=== PATIENT | female | born 1980 | race Caucasian/White ===

== ENCOUNTER → 2024-11-29 | Outpatient (CLI) | payer MEDICAID, SELFPAY | END | disposition home or self-care (01) | LOC: SWHD 09:05 | PROVIDERS: Visit Provider Student in an Organized Health Care Education/Training Program | DX: L98.499 Non-pressure chronic ulcer of skin of other sites with unspecified severity (principal); T81.89XA Other complications of procedures, not elsewhere classified, initial encounter; E27.1 Primary adrenocortical insufficiency; E27.2 Addisonian crisis; E03.9 Hypothyroidism, unspecified; J45.909 Unspecified asthma, uncomplicated; E10.40 Type 1 diabetes mellitus with diabetic neuropathy, unspecified; E10.10 Type 1 diabetes mellitus with ketoacidosis without coma; Z87.891 Personal history of nicotine dependence; D69.6 Thrombocytopenia, unspecified; F41.9 Anxiety disorder, unspecified | CPT/HCPCS: 99213; A9270; G0463 ==

== ENCOUNTER → 2024-12-06 | Outpatient (CLI) | payer MEDICAID, SELFPAY | END | disposition home or self-care (01) | LOC: SWHD 13:40 | PROVIDERS: Visit Provider Surgery | DX: L98.499 Non-pressure chronic ulcer of skin of other sites with unspecified severity (principal); T81.89XA Other complications of procedures, not elsewhere classified, initial encounter; E27.1 Primary adrenocortical insufficiency; E27.2 Addisonian crisis; E03.9 Hypothyroidism, unspecified; J45.909 Unspecified asthma, uncomplicated; E10.40 Type 1 diabetes mellitus with diabetic neuropathy, unspecified; E10.10 Type 1 diabetes mellitus with ketoacidosis without coma; Z87.891 Personal history of nicotine dependence; D69.6 Thrombocytopenia, unspecified; F41.9 Anxiety disorder, unspecified | CPT/HCPCS: 97597; A9270 ==

== ENCOUNTER → 2024-12-13 | Outpatient (CLI) | payer MEDICAID, SELFPAY | END | disposition home or self-care (01) | LOC: SWHD 13:27 | PROVIDERS: Visit Provider Student in an Organized Health Care Education/Training Program | DX: T81.89XA Other complications of procedures, not elsewhere classified, initial encounter (principal); E27.1 Primary adrenocortical insufficiency; E03.9 Hypothyroidism, unspecified; J45.909 Unspecified asthma, uncomplicated; E10.40 Type 1 diabetes mellitus with diabetic neuropathy, unspecified; E10.10 Type 1 diabetes mellitus with ketoacidosis without coma; Z87.891 Personal history of nicotine dependence; D69.6 Thrombocytopenia, unspecified; F41.9 Anxiety disorder, unspecified | CPT/HCPCS: 99213; A9270; G0463 ==

== ENCOUNTER → 2024-12-20 | Outpatient (CLI) | payer MEDICAID, SELFPAY | END | disposition home or self-care (01) | LOC: SWHD 14:17 | PROVIDERS: PCP Family Medicine; Referring Provider Family Medicine; Visit Provider Student in an Organized Health Care Education/Training Program | DX: T81.89XA Other complications of procedures, not elsewhere classified, initial encounter (principal); J45.909 Unspecified asthma, uncomplicated; E03.9 Hypothyroidism, unspecified; E27.1 Primary adrenocortical insufficiency; E10.40 Type 1 diabetes mellitus with diabetic neuropathy, unspecified; E10.10 Type 1 diabetes mellitus with ketoacidosis without coma; Z87.891 Personal history of nicotine dependence; D69.6 Thrombocytopenia, unspecified; F41.9 Anxiety disorder, unspecified | CPT/HCPCS: 17250; A9270 ==

== ENCOUNTER → 2024-12-27 | Outpatient (CLI) | payer MEDICAID, SELFPAY | END | disposition home or self-care (01) | LOC: SWHD 13:17 | PROVIDERS: PCP Family Medicine; Referring Provider Family Medicine; Visit Provider Student in an Organized Health Care Education/Training Program | DX: T81.89XA Other complications of procedures, not elsewhere classified, initial encounter (principal); J45.909 Unspecified asthma, uncomplicated; E03.9 Hypothyroidism, unspecified; E27.1 Primary adrenocortical insufficiency; E10.40 Type 1 diabetes mellitus with diabetic neuropathy, unspecified; E10.10 Type 1 diabetes mellitus with ketoacidosis without coma; Z87.891 Personal history of nicotine dependence; D69.6 Thrombocytopenia, unspecified; F41.9 Anxiety disorder, unspecified | CPT/HCPCS: 99213; A9270; G0463 ==

== ENCOUNTER → 2025-01-03 | Outpatient (CLI) | payer MEDICAID, SELFPAY | END | disposition home or self-care (01) | LOC: SWHD 13:35 | PROVIDERS: PCP Family Medicine; Referring Provider Family Medicine; Visit Provider Surgery | DX: T81.89XA Other complications of procedures, not elsewhere classified, initial encounter (principal); S21.101A Unspecified open wound of right front wall of thorax without penetration into thoracic cavity, initial encounter; X58.XXXA Exposure to other specified factors, initial encounter; J45.909 Unspecified asthma, uncomplicated; E03.9 Hypothyroidism, unspecified; E27.1 Primary adrenocortical insufficiency; E10.40 Type 1 diabetes mellitus with diabetic neuropathy, unspecified; E10.10 Type 1 diabetes mellitus with ketoacidosis without coma; Z87.891 Personal history of nicotine dependence; D69.6 Thrombocytopenia, unspecified; F41.9 Anxiety disorder, unspecified | CPT/HCPCS: 99213; A9270; G0463 ==

== ENCOUNTER → 2025-01-10 | Outpatient (CLI) | payer MEDICAID, SELFPAY | END | disposition home or self-care (01) | LOC: SWHD 10:01 | PROVIDERS: PCP Family Medicine; Referring Provider Family Medicine; Visit Provider Surgery | DX: T81.89XA Other complications of procedures, not elsewhere classified, initial encounter (principal); S21.101A Unspecified open wound of right front wall of thorax without penetration into thoracic cavity, initial encounter; X58.XXXA Exposure to other specified factors, initial encounter; J45.909 Unspecified asthma, uncomplicated; E03.9 Hypothyroidism, unspecified; E27.1 Primary adrenocortical insufficiency; E10.40 Type 1 diabetes mellitus with diabetic neuropathy, unspecified; E10.10 Type 1 diabetes mellitus with ketoacidosis without coma; Z87.891 Personal history of nicotine dependence; D69.6 Thrombocytopenia, unspecified; F41.9 Anxiety disorder, unspecified | CPT/HCPCS: 99213; A9270; G0463 ==

== ENCOUNTER → 2025-01-17 | Outpatient (CLI) | payer MEDICAID, SELFPAY | END | disposition home or self-care (01) | LOC: SWHD 14:32 | PROVIDERS: PCP Family Medicine; Referring Provider Family Medicine; Visit Provider Student in an Organized Health Care Education/Training Program | DX: T81.89XA Other complications of procedures, not elsewhere classified, initial encounter (principal); S21.101A Unspecified open wound of right front wall of thorax without penetration into thoracic cavity, initial encounter; X58.XXXA Exposure to other specified factors, initial encounter; J45.909 Unspecified asthma, uncomplicated; E03.9 Hypothyroidism, unspecified; E27.1 Primary adrenocortical insufficiency; E10.40 Type 1 diabetes mellitus with diabetic neuropathy, unspecified; E10.10 Type 1 diabetes mellitus with ketoacidosis without coma; Z87.891 Personal history of nicotine dependence; D69.6 Thrombocytopenia, unspecified; F41.9 Anxiety disorder, unspecified | CPT/HCPCS: 97597; A9270 ==

== ENCOUNTER → 2025-01-24 | Outpatient (CLI) | payer MEDICAID, SELFPAY | END | disposition home or self-care (01) | LOC: SWHD 14:01 | PROVIDERS: PCP Family Medicine; Referring Provider Family Medicine; Visit Provider Student in an Organized Health Care Education/Training Program | DX: T81.89XA Other complications of procedures, not elsewhere classified, initial encounter (principal); S21.101A Unspecified open wound of right front wall of thorax without penetration into thoracic cavity, initial encounter; X58.XXXA Exposure to other specified factors, initial encounter; J45.909 Unspecified asthma, uncomplicated; E03.9 Hypothyroidism, unspecified; E27.1 Primary adrenocortical insufficiency; E10.40 Type 1 diabetes mellitus with diabetic neuropathy, unspecified; E10.10 Type 1 diabetes mellitus with ketoacidosis without coma; Z87.891 Personal history of nicotine dependence; D69.6 Thrombocytopenia, unspecified; F41.9 Anxiety disorder, unspecified | CPT/HCPCS: 99213; A9270; G0463 ==

== ENCOUNTER → 2025-01-31 | Outpatient (CLI) | payer MEDICAID, SELFPAY | END | disposition home or self-care (01) | LOC: SWHD 13:50 | PROVIDERS: PCP Family Medicine; Referring Provider Family Medicine; Visit Provider Student in an Organized Health Care Education/Training Program | DX: T81.89XA Other complications of procedures, not elsewhere classified, initial encounter (principal); S21.101A Unspecified open wound of right front wall of thorax without penetration into thoracic cavity, initial encounter; X58.XXXA Exposure to other specified factors, initial encounter; J45.909 Unspecified asthma, uncomplicated; E03.9 Hypothyroidism, unspecified; E27.1 Primary adrenocortical insufficiency; E10.40 Type 1 diabetes mellitus with diabetic neuropathy, unspecified; E10.10 Type 1 diabetes mellitus with ketoacidosis without coma; Z87.891 Personal history of nicotine dependence; F41.9 Anxiety disorder, unspecified | CPT/HCPCS: 99213; A9270; G0463 ==

== ENCOUNTER → 2025-02-07 | Outpatient (CLI) | payer MEDICAID, SELFPAY | END | disposition home or self-care (01) | LOC: SWHD 12:55 | PROVIDERS: PCP Family Medicine; Referring Provider Family Medicine; Visit Provider Student in an Organized Health Care Education/Training Program | DX: T81.89XA Other complications of procedures, not elsewhere classified, initial encounter (principal); S21.101A Unspecified open wound of right front wall of thorax without penetration into thoracic cavity, initial encounter; X58.XXXA Exposure to other specified factors, initial encounter; J45.909 Unspecified asthma, uncomplicated; E03.9 Hypothyroidism, unspecified; E27.1 Primary adrenocortical insufficiency; E10.40 Type 1 diabetes mellitus with diabetic neuropathy, unspecified; E10.10 Type 1 diabetes mellitus with ketoacidosis without coma; Z87.891 Personal history of nicotine dependence; F41.9 Anxiety disorder, unspecified | CPT/HCPCS: 99213; A9270; G0463 ==

== ENCOUNTER → 2025-02-08 | Outpatient (CLI) | payer MEDICAID, SELFPAY | END | disposition home or self-care (01) | LOC: SLDO 14:22 | PROVIDERS: Referring Provider Student in an Organized Health Care Education/Training Program; Visit Provider Student in an Organized Health Care Education/Training Program | DX: E10.622 Type 1 diabetes mellitus with other skin ulcer (principal) | CPT/HCPCS: 87070; 87075; 87077; 87186; 87205 ==

== ENCOUNTER → 2025-02-09 | Outpatient (CLI) | payer MEDICAID, SELFPAY ==
[2025-02-09 14:26] LABS: Basophils # (Auto) 0.1 Thou/mm3 (0.0-0.2); Basophils % (Auto) 1 % (0-2.5); Eosinophils # (Auto) 0.2 Thou/mm3 (0.0-0.5); Eosinophils % (Auto) 1 % (0-10); Hematocrit 37.5 % (36.0-46.0); Hemoglobin 12.7 g/dL (12.0-16.0); Immature Granulocytes Auto 0.20 Thou/mm3 (0.00-0.00); Lymphocytes # (Auto) 2.5 Thou/mm3 (1.0-4.8); Lymphocytes % (Auto) 18 % (10-50); Mean Corpuscular HGB Conc 33.9 g/dl (31.0-37.0); Mean Corpuscular Hemoglobin 30.1 pg (25.0-35.0); Mean Corpuscular Volume 89 fL (80-100); Monocytes # (Auto) 1.0 Thou/mm3 (0.0-0.8); Monocytes % (Auto) 7 % (0-12); Neutrophils # (Auto) 9.8 Thou/mm3 (1.8-7.7); Neutrophils % (Auto) 71 % (37-80); Nucleated Red Blood Cell # 0.00 Thou/mm3 (0.00-0.00); Nucleated Red Blood Cell % 0 /100 WBC (0); Platelet Count 424 Thou/mm3 (140-440); RDW Standard Deviation 41.6 fL (36.4-46.3); Red Blood Count 4.22 Miln/mm3 (4.00-5.20); White Blood Count 13.8 Thou/mm3 (3.6-11.0)
[2025-02-09 14:35] LABS: Glucose Estimated Average 166 mg/dL (80-131); Hemoglobin A1C 7.4 % Hgb (4.8-6.0)
[2025-02-09 14:40] LABS: Alanine Aminotransferase 19 U/L (10-49); Albumin, Serum 4.0 gm/dL (3.5-5.0); Albumin/Globulin Ratio 1.6 (1.2-2.2); Alkaline Phosphatase 100 U/L (46-116); Anion Gap 9 (7-16); Aspartate Amino Transferase 27 U/L (0-34); BUN/Creatinine Ratio 13 Ratio (12-20); Bilirubin,Total 0.3 mg/dL (0.3-1.2); Blood Urea Nitrogen 16 mg/dL (9-23); C-Reactive Protein 1.2 mg/dL (0.0-0.9); Calcium 9.4 mg/dL (8.3-10.6); Calcium (Corrected) 9.4 mg/dL (8.5-10.1); Carbon Dioxide 27.4 mMol/L (20.0-31.0); Chloride 98 mMol/L (98-107); Creatinine (Component) 1.2 mg/dL (0.6-1.3); Globulin 2.5 gm/dL (2.3-3.5); Glucose 183 mg/dL (74-106); Osmolality,Calculated 274 (275-295); Potassium 4.1 mMol/L (3.4-5.1); Sodium 134 mMol/L (136-145); Total Protein 6.5 gm/dL (5.7-8.2); eGFR 58 See Note
[2025-02-09 15:38] LABS: Sed Rate (ESR) 39 mm/hr (0-20)
== END | disposition home or self-care (01) ==
LOC: COPL 12:33
PROVIDERS: PCP Family Medicine; Referring Provider Student in an Organized Health Care Education/Training Program; Visit Provider Student in an Organized Health Care Education/Training Program
DX: E10.622 Type 1 diabetes mellitus with other skin ulcer (principal)
CPT/HCPCS: 36415; 80053; 83036; 85025; 85652; 86140

== ENCOUNTER → 2025-02-14 | Outpatient (CLI) | payer MEDICAID, SELFPAY | END | disposition home or self-care (01) | LOC: SWHD 13:10 | PROVIDERS: PCP Family Medicine; Referring Provider Family Medicine; Visit Provider Student in an Organized Health Care Education/Training Program | DX: T81.89XA Other complications of procedures, not elsewhere classified, initial encounter (principal); S21.101A Unspecified open wound of right front wall of thorax without penetration into thoracic cavity, initial encounter; X58.XXXA Exposure to other specified factors, initial encounter; J45.909 Unspecified asthma, uncomplicated; E03.9 Hypothyroidism, unspecified; E27.1 Primary adrenocortical insufficiency; E10.40 Type 1 diabetes mellitus with diabetic neuropathy, unspecified; Z87.891 Personal history of nicotine dependence; F41.9 Anxiety disorder, unspecified; E10.10 Type 1 diabetes mellitus with ketoacidosis without coma | CPT/HCPCS: 99213; A9270; G0463 ==

== ENCOUNTER → 2025-02-21 | Outpatient (CLI) | payer MEDICAID, SELFPAY | END | disposition home or self-care (01) | LOC: SWHD 10:29 | PROVIDERS: PCP Family Medicine; Referring Provider Family Medicine; Visit Provider Student in an Organized Health Care Education/Training Program | DX: T81.89XA Other complications of procedures, not elsewhere classified, initial encounter (principal); S21.101A Unspecified open wound of right front wall of thorax without penetration into thoracic cavity, initial encounter; X58.XXXA Exposure to other specified factors, initial encounter; J45.909 Unspecified asthma, uncomplicated; E03.9 Hypothyroidism, unspecified; E27.1 Primary adrenocortical insufficiency; E10.40 Type 1 diabetes mellitus with diabetic neuropathy, unspecified; F41.9 Anxiety disorder, unspecified; E10.10 Type 1 diabetes mellitus with ketoacidosis without coma; Z87.891 Personal history of nicotine dependence | CPT/HCPCS: 11042; A9270 ==

== ENCOUNTER → 2025-02-28 | Outpatient (CLI) | payer MEDICAID, SELFPAY | END | disposition home or self-care (01) | LOC: SWHD 13:37 | PROVIDERS: PCP Family Medicine; Referring Provider Family Medicine; Visit Provider Student in an Organized Health Care Education/Training Program | DX: T81.89XA Other complications of procedures, not elsewhere classified, initial encounter (principal); S21.101A Unspecified open wound of right front wall of thorax without penetration into thoracic cavity, initial encounter; X58.XXXA Exposure to other specified factors, initial encounter; J45.909 Unspecified asthma, uncomplicated; E03.9 Hypothyroidism, unspecified; E27.1 Primary adrenocortical insufficiency; E10.40 Type 1 diabetes mellitus with diabetic neuropathy, unspecified; F41.9 Anxiety disorder, unspecified; E10.10 Type 1 diabetes mellitus with ketoacidosis without coma; Z87.891 Personal history of nicotine dependence | CPT/HCPCS: 97597; A9270 ==

== ENCOUNTER → 2025-03-01 | Outpatient (CLI) | payer MEDICAID, SELFPAY ==
--- NOTE | 2025-03-01 14:00 | XR_ITS ---
Examination: Ultrasound soft tissue chest TECHNIQUE: Grayscale sonographic images soft tissue chest Date and time: March 01, 2025 1346 hours INDICATIONS: Right anterior chest nonhealing swelling and pain infection at Port-A-Cath site right chest 10 months FINDINGS: Complex masslike area at the area concern with vascularity 3.4 x 2.0 x 1.7 cm most consistent with abscess IMPRESSION: Soft tissue findings most consistent with abscess at the area concern, consider CT chest with intravenous contrast follow-up
== END | disposition home or self-care (01) ==
LOC: CDIM 13:31
PROVIDERS: Referring Provider Student in an Organized Health Care Education/Training Program; Visit Provider Student in an Organized Health Care Education/Training Program
DX: E10.622 Type 1 diabetes mellitus with other skin ulcer (principal)
CPT/HCPCS: 76604

== ENCOUNTER → 2025-03-07 | Outpatient (CLI) | payer MEDICAID, SELFPAY | END | disposition home or self-care (01) | LOC: SWHD 14:08 | PROVIDERS: PCP Family Medicine; Referring Provider Family Medicine; Visit Provider Student in an Organized Health Care Education/Training Program | DX: T81.89XA Other complications of procedures, not elsewhere classified, initial encounter (principal); S21.101A Unspecified open wound of right front wall of thorax without penetration into thoracic cavity, initial encounter; X58.XXXA Exposure to other specified factors, initial encounter; J45.909 Unspecified asthma, uncomplicated; F41.9 Anxiety disorder, unspecified; E10.10 Type 1 diabetes mellitus with ketoacidosis without coma; Z87.891 Personal history of nicotine dependence | CPT/HCPCS: 99213; A9270; G0463 ==

== ENCOUNTER → 2025-03-12 | Outpatient (CLI) | payer MEDICAID, SELFPAY | END | disposition home or self-care (01) | LOC: SWHD 10:54 | PROVIDERS: PCP Family Medicine; Referring Provider Family Medicine; Visit Provider Student in an Organized Health Care Education/Training Program | DX: T81.89XA Other complications of procedures, not elsewhere classified, initial encounter (principal); S21.101A Unspecified open wound of right front wall of thorax without penetration into thoracic cavity, initial encounter; X58.XXXA Exposure to other specified factors, initial encounter; J45.909 Unspecified asthma, uncomplicated; E03.9 Hypothyroidism, unspecified; E27.1 Primary adrenocortical insufficiency; E10.40 Type 1 diabetes mellitus with diabetic neuropathy, unspecified; F41.9 Anxiety disorder, unspecified; E10.10 Type 1 diabetes mellitus with ketoacidosis without coma; Z87.891 Personal history of nicotine dependence | CPT/HCPCS: 11042; A9270 ==

== ENCOUNTER → 2025-03-14 | Outpatient (CLI) | payer MEDICAID, SELFPAY ==
--- NOTE | 2025-03-14 14:00 | XR_ITS ---
Examination: Ultrasound soft tissue chest TECHNIQUE: Grayscale sonographic images soft tissue chest Date and time: March 14, 2025 1431 hours INDICATIONS: Chronic nonhealing Port-A-Cath right chest 11 months FINDINGS: Complex masslike area consistent with abscess at the area concern 11 x 2 x 15 mm IMPRESSION: Recommend CT chest with intravenous contrast follow-up to confirm abscess collection at the area concern anterior right chest
== END | disposition home or self-care (01) ==
PROVIDERS: PCP Student in an Organized Health Care Education/Training Program; Referring Provider Student in an Organized Health Care Education/Training Program; Visit Provider Student in an Organized Health Care Education/Training Program
DX: A49.9 Bacterial infection, unspecified (principal); E10.622 Type 1 diabetes mellitus with other skin ulcer; L98.492 Non-pressure chronic ulcer of skin of other sites with fat layer exposed; T82.7XXA Infection and inflammatory reaction due to other cardiac and vascular devices, implants and grafts, initial encounter
CPT/HCPCS: 76604

== ENCOUNTER → 2025-03-19 | Outpatient (CLI) | payer MEDICAID, SELFPAY | END | disposition home or self-care (01) | LOC: SWHD 10:29 | PROVIDERS: PCP Family Medicine; Referring Provider Family Medicine; Visit Provider Student in an Organized Health Care Education/Training Program | DX: T81.89XA Other complications of procedures, not elsewhere classified, initial encounter (principal); S21.101A Unspecified open wound of right front wall of thorax without penetration into thoracic cavity, initial encounter; X58.XXXA Exposure to other specified factors, initial encounter; J45.909 Unspecified asthma, uncomplicated; E10.40 Type 1 diabetes mellitus with diabetic neuropathy, unspecified; F41.9 Anxiety disorder, unspecified; E10.10 Type 1 diabetes mellitus with ketoacidosis without coma; Z87.891 Personal history of nicotine dependence | CPT/HCPCS: 99213; G0463 ==

== ENCOUNTER → 2025-03-27 | Outpatient (CLI) | payer MEDICAID, SELFPAY ==
[2025-03-27 11:45] LABS: Basophils # (Auto) 0.1 Thou/mm3 (0.0-0.2); Basophils % (Auto) 0 % (0-2.5); Eosinophils # (Auto) 0.3 Thou/mm3 (0.0-0.5); Eosinophils % (Auto) 2 % (0-10); Hematocrit 39.7 % (36.0-46.0); Hemoglobin 13.8 g/dL (12.0-16.0); Immature Granulocytes Auto 0.12 Thou/mm3 (0.00-0.00); Lymphocytes # (Auto) 3.0 Thou/mm3 (1.0-4.8); Lymphocytes % (Auto) 25 % (10-50); Mean Corpuscular HGB Conc 34.8 g/dl (31.0-37.0); Mean Corpuscular Hemoglobin 29.9 pg (25.0-35.0); Mean Corpuscular Volume 86 fL (80-100); Monocytes # (Auto) 1.1 Thou/mm3 (0.0-0.8); Monocytes % (Auto) 9 % (0-12); Neutrophils # (Auto) 7.5 Thou/mm3 (1.8-7.7); Neutrophils % (Auto) 62 % (37-80); Nucleated Red Blood Cell # 0.00 Thou/mm3 (0.00-0.00); Nucleated Red Blood Cell % 0 /100 WBC (0); Platelet Count 474 Thou/mm3 (140-440); RDW Standard Deviation 40.2 fL (36.4-46.3); Red Blood Count 4.62 Miln/mm3 (4.00-5.20); White Blood Count 12.1 Thou/mm3 (3.6-11.0)
[2025-03-27 11:52] LABS: Glucose Estimated Average 151 mg/dL (80-131); Hemoglobin A1C 6.9 % Hgb (4.8-6.0)
[2025-03-27 12:08] LABS: Sed Rate (ESR) 40 mm/hr (0-20)
[2025-03-27 12:11] LABS: Alanine Aminotransferase 10 U/L (10-49); Albumin, Serum 3.9 gm/dL (3.5-5.0); Albumin/Globulin Ratio 1.7 (1.2-2.2); Alkaline Phosphatase 92 U/L (46-116); Anion Gap 10 (7-16); Aspartate Amino Transferase 19 U/L (0-34); BUN/Creatinine Ratio 16 Ratio (12-20); Bilirubin,Total 0.4 mg/dL (0.3-1.2); Blood Urea Nitrogen 21 mg/dL (9-23); C-Reactive Protein 1.0 mg/dL (0.0-0.9); Calcium 9.3 mg/dL (8.3-10.6); Calcium (Corrected) 9.4 mg/dL (8.5-10.1); Carbon Dioxide 22.5 mMol/L (20.0-31.0); Chloride 95 mMol/L (98-107); Creatinine (Component) 1.3 mg/dL (0.6-1.3); Globulin 2.3 gm/dL (2.3-3.5); Glucose 225 mg/dL (74-106); Osmolality,Calculated 265 (275-295); Potassium 4.2 mMol/L (3.4-5.1); Sodium 127 mMol/L (136-145); Total Protein 6.2 gm/dL (5.7-8.2); eGFR 53 See Note
== END | disposition home or self-care (01) ==
LOC: COPL 10:24
PROVIDERS: PCP Family Medicine; Referring Provider Student in an Organized Health Care Education/Training Program; Visit Provider Student in an Organized Health Care Education/Training Program
DX: E10.622 Type 1 diabetes mellitus with other skin ulcer (principal); A49.9 Bacterial infection, unspecified; J85.3 Abscess of mediastinum; L98.492 Non-pressure chronic ulcer of skin of other sites with fat layer exposed
CPT/HCPCS: 36415; 80053; 83036; 85025; 85652; 86140

== ENCOUNTER → 2025-03-29 | Outpatient (CLI) | payer MEDICAID, SELFPAY ==
--- NOTE | 2025-03-29 14:00 | XR_ITS ---
Examination: CT chest with intravenous contrast 2-D sagittal and coronal reconstructions Exam date and time: March 21, 2025 1214 hours INDICATIONS: Chest and post surgery one year ago CTDI:vol (mGy) 19.1 DLP: (mGycm) 721 Technique: Multiple axial sections of the thorax have been obtained. Sections have been obtained, 3 mm slice thickness. Mediastinal and lung density settings have been obtained. Intravenous contrast administered, 60 cc [id number] 2-D sagittal, coronal images obtained. Low dose protocols were performed. One or more of the following dose reduction techniques were used; automated exposure control, adjustment of the mA and/or KV according to patient size, use of iterative reconstruction technique. Findings: No thoracic aortic aneurysm dilatation No pulmonary artery filling defects No pneumonia or pulmonary edema or pleural disease No visualized liver or splenic lesion Absent gallbladder No pancreatic mass Surgical clips upper right chest anteriorly with 10 mm possible fluid collection and tract extending to the skin Moderate osteopenia IMPRESSION: No acute process in the chest 10 mm fluid collection with surgical clips in the upper right chest anteriorly with tract extending to the skin
[2025-03-29 15:03] LABS: HCG Qualitative,Urine Negative
== END | disposition home or self-care (01) ==
PROVIDERS: PCP Nurse Practitioner Family; Referring Provider Student in an Organized Health Care Education/Training Program; Visit Provider Student in an Organized Health Care Education/Training Program
DX: T82.7XXA Infection and inflammatory reaction due to other cardiac and vascular devices, implants and grafts, initial encounter (principal)
CPT/HCPCS: 71260; 81025; A4649; Q9967

== ENCOUNTER → 2025-04-09 | Outpatient (CLI) | payer MEDICAID, SELFPAY | END | disposition home or self-care (01) | LOC: SWHD 10:36 | PROVIDERS: PCP Family Medicine; Referring Provider Family Medicine; Visit Provider Student in an Organized Health Care Education/Training Program | DX: T81.89XA Other complications of procedures, not elsewhere classified, initial encounter (principal); S21.101A Unspecified open wound of right front wall of thorax without penetration into thoracic cavity, initial encounter; X58.XXXA Exposure to other specified factors, initial encounter; J45.909 Unspecified asthma, uncomplicated; E10.40 Type 1 diabetes mellitus with diabetic neuropathy, unspecified; F41.9 Anxiety disorder, unspecified; E10.10 Type 1 diabetes mellitus with ketoacidosis without coma; Z87.891 Personal history of nicotine dependence | CPT/HCPCS: 11042; A9270 ==

== ENCOUNTER → 2025-04-16 | Outpatient (CLI) | payer MEDICAID, SELFPAY | END | disposition home or self-care (01) | LOC: SWHD 08:55 | PROVIDERS: PCP Family Medicine; Referring Provider Family Medicine; Visit Provider Surgery | DX: T81.89XA Other complications of procedures, not elsewhere classified, initial encounter (principal); S21.101A Unspecified open wound of right front wall of thorax without penetration into thoracic cavity, initial encounter; X58.XXXA Exposure to other specified factors, initial encounter; J45.909 Unspecified asthma, uncomplicated; E10.40 Type 1 diabetes mellitus with diabetic neuropathy, unspecified; F41.9 Anxiety disorder, unspecified; E10.10 Type 1 diabetes mellitus with ketoacidosis without coma; Z87.891 Personal history of nicotine dependence | CPT/HCPCS: 99213; A9270; G0463 ==

== ENCOUNTER → 2025-04-23 | Outpatient (CLI) | payer MEDICAID, SELFPAY | END | disposition home or self-care (01) | LOC: SWHD 09:47 | PROVIDERS: PCP Family Medicine; Referring Provider Family Medicine; Visit Provider Surgery | DX: T81.89XA Other complications of procedures, not elsewhere classified, initial encounter (principal); S21.101A Unspecified open wound of right front wall of thorax without penetration into thoracic cavity, initial encounter; X58.XXXA Exposure to other specified factors, initial encounter; J45.909 Unspecified asthma, uncomplicated; E10.40 Type 1 diabetes mellitus with diabetic neuropathy, unspecified; F41.9 Anxiety disorder, unspecified; E10.10 Type 1 diabetes mellitus with ketoacidosis without coma; Z87.891 Personal history of nicotine dependence | CPT/HCPCS: 99213; A9270; G0463 ==

== ENCOUNTER → 2025-04-30 | Outpatient (CLI) | payer MEDICAID, SELFPAY | END | disposition home or self-care (01) | LOC: SWHD 09:46 | PROVIDERS: PCP Family Medicine; Referring Provider Family Medicine; Visit Provider Student in an Organized Health Care Education/Training Program | DX: T81.89XA Other complications of procedures, not elsewhere classified, initial encounter (principal); S21.101A Unspecified open wound of right front wall of thorax without penetration into thoracic cavity, initial encounter; X58.XXXA Exposure to other specified factors, initial encounter; J45.909 Unspecified asthma, uncomplicated; E10.40 Type 1 diabetes mellitus with diabetic neuropathy, unspecified; E10.10 Type 1 diabetes mellitus with ketoacidosis without coma; F41.9 Anxiety disorder, unspecified; Z87.891 Personal history of nicotine dependence | CPT/HCPCS: 99213; A9270; G0463 ==

== ENCOUNTER → 2025-05-07 | Outpatient (CLI) | payer MEDICAID, SELFPAY | END | disposition home or self-care (01) | LOC: SWHD 10:26 | PROVIDERS: PCP Family Medicine; Referring Provider Family Medicine; Visit Provider Student in an Organized Health Care Education/Training Program | DX: T81.89XA Other complications of procedures, not elsewhere classified, initial encounter (principal); S21.101A Unspecified open wound of right front wall of thorax without penetration into thoracic cavity, initial encounter; X58.XXXA Exposure to other specified factors, initial encounter; J45.909 Unspecified asthma, uncomplicated; E10.40 Type 1 diabetes mellitus with diabetic neuropathy, unspecified; E10.10 Type 1 diabetes mellitus with ketoacidosis without coma; F41.9 Anxiety disorder, unspecified; Z87.891 Personal history of nicotine dependence | CPT/HCPCS: 17250; A9270 ==

== ENCOUNTER → 2025-05-14 | Outpatient (CLI) | payer MEDICAID, SELFPAY | END | disposition home or self-care (01) | LOC: SWHD 09:47 | PROVIDERS: PCP Family Medicine; Referring Provider Family Medicine; Visit Provider Surgery | DX: T81.89XA Other complications of procedures, not elsewhere classified, initial encounter (principal); S21.101A Unspecified open wound of right front wall of thorax without penetration into thoracic cavity, initial encounter; X58.XXXA Exposure to other specified factors, initial encounter; J45.909 Unspecified asthma, uncomplicated; E10.40 Type 1 diabetes mellitus with diabetic neuropathy, unspecified; E10.10 Type 1 diabetes mellitus with ketoacidosis without coma; F41.9 Anxiety disorder, unspecified; Z87.891 Personal history of nicotine dependence | CPT/HCPCS: 99213; A9270; G0463 ==

== ENCOUNTER → 2025-05-21 | Outpatient (CLI) | payer MEDICAID, SELFPAY | END | disposition home or self-care (01) | PROVIDERS: PCP Family Medicine; Referring Provider Family Medicine; Visit Provider Student in an Organized Health Care Education/Training Program | DX: T81.89XA Other complications of procedures, not elsewhere classified, initial encounter (principal); S21.101A Unspecified open wound of right front wall of thorax without penetration into thoracic cavity, initial encounter; X58.XXXA Exposure to other specified factors, initial encounter; J45.909 Unspecified asthma, uncomplicated; E10.40 Type 1 diabetes mellitus with diabetic neuropathy, unspecified; E10.10 Type 1 diabetes mellitus with ketoacidosis without coma; F41.9 Anxiety disorder, unspecified; Z87.891 Personal history of nicotine dependence | CPT/HCPCS: 17250; A9270 ==

== ENCOUNTER → 2025-05-28 | Outpatient (CLI) | payer MEDICAID, SELFPAY | END | disposition home or self-care (01) | LOC: SWHD 09:52 | PROVIDERS: PCP Family Medicine; Referring Provider Family Medicine; Visit Provider Student in an Organized Health Care Education/Training Program | DX: T81.89XA Other complications of procedures, not elsewhere classified, initial encounter (principal); S21.101A Unspecified open wound of right front wall of thorax without penetration into thoracic cavity, initial encounter; X58.XXXA Exposure to other specified factors, initial encounter; J45.909 Unspecified asthma, uncomplicated; E10.40 Type 1 diabetes mellitus with diabetic neuropathy, unspecified; E10.10 Type 1 diabetes mellitus with ketoacidosis without coma; F41.9 Anxiety disorder, unspecified; Z87.891 Personal history of nicotine dependence | CPT/HCPCS: 99213; A9270; G0463 ==

== ENCOUNTER → 2025-06-04 | Outpatient (CLI) | payer MEDICAID, SELFPAY | END | disposition home or self-care (01) | LOC: SWHD 09:35 | PROVIDERS: PCP Family Medicine; Referring Provider Family Medicine; Visit Provider Student in an Organized Health Care Education/Training Program | DX: T81.89XA Other complications of procedures, not elsewhere classified, initial encounter (principal); S21.101A Unspecified open wound of right front wall of thorax without penetration into thoracic cavity, initial encounter; X58.XXXA Exposure to other specified factors, initial encounter; J45.909 Unspecified asthma, uncomplicated; E10.40 Type 1 diabetes mellitus with diabetic neuropathy, unspecified; E10.10 Type 1 diabetes mellitus with ketoacidosis without coma; F41.9 Anxiety disorder, unspecified; Z87.891 Personal history of nicotine dependence | CPT/HCPCS: 99213; A9270; G0463 ==

== ENCOUNTER → 2025-06-11 | Outpatient (CLI) | payer MEDICAID, SELFPAY | END | disposition home or self-care (01) | LOC: SWHD 09:27 | PROVIDERS: PCP Family Medicine; Referring Provider Family Medicine; Visit Provider Student in an Organized Health Care Education/Training Program | DX: T81.89XA Other complications of procedures, not elsewhere classified, initial encounter (principal); S21.101A Unspecified open wound of right front wall of thorax without penetration into thoracic cavity, initial encounter; X58.XXXA Exposure to other specified factors, initial encounter; J45.909 Unspecified asthma, uncomplicated; E10.40 Type 1 diabetes mellitus with diabetic neuropathy, unspecified; E10.10 Type 1 diabetes mellitus with ketoacidosis without coma; F41.9 Anxiety disorder, unspecified; Z87.891 Personal history of nicotine dependence | CPT/HCPCS: 97597; A9270 ==

== ENCOUNTER → 2025-06-18 | Outpatient (CLI) | payer MEDICAID, SELFPAY | END | disposition home or self-care (01) | LOC: SWHD 10:22 | PROVIDERS: PCP Family Medicine; Referring Provider Family Medicine; Visit Provider Student in an Organized Health Care Education/Training Program | DX: T81.89XA Other complications of procedures, not elsewhere classified, initial encounter (principal); X58.XXXA Exposure to other specified factors, initial encounter; J45.909 Unspecified asthma, uncomplicated; E10.40 Type 1 diabetes mellitus with diabetic neuropathy, unspecified; F41.9 Anxiety disorder, unspecified; Z87.891 Personal history of nicotine dependence | CPT/HCPCS: 99213; G0463 ==

== ENCOUNTER → 2025-06-22 | Outpatient (CLI) | payer MEDICAID, SELFPAY ==
--- NOTE | 2025-06-22 11:42 | XR_ITS ---
EXAMINATION: Ultrasound soft tissue right clavicle TECHNIQUE: Grayscale sonographic image of soft tissue clavicle Date and time: June 22, 2025, 1150 hours, comparison March 14, 2025 INDICATIONS: Open wound from chemotherapy port 1 year FINDINGS: No cystic or soft tissue mass noted IMPRESSION: No cystic or soft tissue mass noted
== END | disposition home or self-care (01) ==
PROVIDERS: Referring Provider Student in an Organized Health Care Education/Training Program; Visit Provider Student in an Organized Health Care Education/Training Program
DX: E10.622 Type 1 diabetes mellitus with other skin ulcer (principal); T82.7XXA Infection and inflammatory reaction due to other cardiac and vascular devices, implants and grafts, initial encounter
CPT/HCPCS: 76604

== ENCOUNTER → 2025-06-25 | Outpatient (CLI) | payer MEDICAID, SELFPAY | END | disposition home or self-care (01) | LOC: SWHD 12:41 | PROVIDERS: PCP Family Medicine; Referring Provider Family Medicine; Visit Provider Student in an Organized Health Care Education/Training Program | DX: T81.89XA Other complications of procedures, not elsewhere classified, initial encounter (principal); S21.101A Unspecified open wound of right front wall of thorax without penetration into thoracic cavity, initial encounter; X58.XXXA Exposure to other specified factors, initial encounter; J45.909 Unspecified asthma, uncomplicated; E10.40 Type 1 diabetes mellitus with diabetic neuropathy, unspecified; E10.10 Type 1 diabetes mellitus with ketoacidosis without coma; F41.9 Anxiety disorder, unspecified; Z87.891 Personal history of nicotine dependence | CPT/HCPCS: 99212; A9270; G0463 ==

== ENCOUNTER → 2025-07-02 | Outpatient (CLI) | payer MEDICAID, SELFPAY | END | disposition home or self-care (01) | PROVIDERS: PCP Family Medicine; Referring Provider Family Medicine; Visit Provider Student in an Organized Health Care Education/Training Program | DX: T81.89XA Other complications of procedures, not elsewhere classified, initial encounter (principal); S21.101A Unspecified open wound of right front wall of thorax without penetration into thoracic cavity, initial encounter; X58.XXXA Exposure to other specified factors, initial encounter; J45.909 Unspecified asthma, uncomplicated; E10.40 Type 1 diabetes mellitus with diabetic neuropathy, unspecified; E10.10 Type 1 diabetes mellitus with ketoacidosis without coma; F41.9 Anxiety disorder, unspecified; Z87.891 Personal history of nicotine dependence | CPT/HCPCS: 99213; G0463 ==

== ENCOUNTER → 2025-07-16 | Outpatient (CLI) | payer MEDICAID, SELFPAY | END | disposition home or self-care (01) | LOC: SWHD 09:55 | PROVIDERS: PCP Family Medicine; Referring Provider Family Medicine; Visit Provider Student in an Organized Health Care Education/Training Program | DX: T81.89XA Other complications of procedures, not elsewhere classified, initial encounter (principal); S21.101A Unspecified open wound of right front wall of thorax without penetration into thoracic cavity, initial encounter; X58.XXXA Exposure to other specified factors, initial encounter; J45.909 Unspecified asthma, uncomplicated; E10.40 Type 1 diabetes mellitus with diabetic neuropathy, unspecified; E10.10 Type 1 diabetes mellitus with ketoacidosis without coma; F41.9 Anxiety disorder, unspecified; Z87.891 Personal history of nicotine dependence | CPT/HCPCS: 99212; A9270; G0463 ==

== ENCOUNTER → 2025-07-23 | Outpatient (CLI) | payer MEDICAID, SELFPAY | END | disposition home or self-care (01) | LOC: SWHD 10:49 | PROVIDERS: PCP Family Medicine; Referring Provider Family Medicine; Visit Provider Surgery | DX: T81.89XA Other complications of procedures, not elsewhere classified, initial encounter (principal); S21.101A Unspecified open wound of right front wall of thorax without penetration into thoracic cavity, initial encounter; X58.XXXA Exposure to other specified factors, initial encounter; J45.909 Unspecified asthma, uncomplicated; E10.40 Type 1 diabetes mellitus with diabetic neuropathy, unspecified; E10.10 Type 1 diabetes mellitus with ketoacidosis without coma; F41.9 Anxiety disorder, unspecified; Z87.891 Personal history of nicotine dependence | CPT/HCPCS: 11042; A9270 ==